=== PATIENT | male | born 1975 | race Caucasian/White ===

== ENCOUNTER 2023-10-06 11:55 | Emergency (ER) | payer SELFPAY ==
[2023-10-06] MEDS ORDERED: Aspirin Chewable 81 MG TAB ONE (12:22)
[2023-10-06 12:59] LABS: #Basophils 0.1 thou/uL (0.0-0.2); #Eosinphils 0.1 thou/uL (0.0-0.7); #Monocytes 0.7 thou/uL (0.11-0.59); #Neutrophils 7.2 thou/uL (1.40-6.50); %Basophils 0.9 % (0.0-1.0); %Eosinophils 1.1 % (0.0-10.0); %Lymphocytes 20.1 % (21.0-51.0); %Monocytes 6.5 % (0.0-10.0); %Neutrophils 71.5 % (42.0-75.0); Hematocrit 48.9 % (42.0-52.0); Hemoglobin 15.9 g/dL (14.0-18.0); Mean Corpuscular HGB CONC 32.5 g/dL (32.0-36.0); Mean Corpuscular Hemoglobin 31.7 pg (27.0-31.0); Mean Corpuscular Volume 97.6 fl (78.0-98.0); Mean Platelet Volume 8.8 fL (7.4-10.4); Platelet Count 184 10x3/uL (130-400); RBC Distribution Width 12.3 % (11.5-14.5); Red Blood Cell (RBC) Count 5.01 mill/uL (4.70-6.10); White Blood Cell (WBC) Count 10.1 10x3/uL (4.8-10.8)
[2023-10-06 13:00] LABS: INR-International Normal Ratio 0.9; Prothrombin Time 12.2 sec (12.0-14.7)
[2023-10-06 13:01] LABS: PTT 27.9 sec (22.9-36.1)
[2023-10-06 13:03] LABS: D-Dimer Test 0.27 *mcg/mL (0.27-0.43)
[2023-10-06 13:14] LABS: Troponin I Less than 0.010 ng/mL (< 0.028)
[2023-10-06 13:15] LABS: Anion Gap 13 mmol/L (10-20); BUN (Urea Nitrogen) 8 mg/dL (8.9-20.6); Calc. Creatinine Clearance 0 mL/min (70-130); Calcium 9.2 mg/dL (7.8-10.44); Carbon Dioxide 23 mmol/L (22-29); Chloride 104 mmol/L (98-107); Estimated GFR 108; Glucose 106 mg/dL (70-105); Lipase 34 U/L (8-78); Potassium 4.2 mmol/L (3.5-5.1); Sodium 136 mmol/L (136-145)
== END 2023-10-06 13:45 | disposition home or self-care (01) ==
LOC: MADERS 11:55
DX: R07.9 Chest pain, unspecified (principal); R00.1 Bradycardia, unspecified; F17.210 Nicotine dependence, cigarettes, uncomplicated
CPT/HCPCS: 71045; 80048; 83690; 84484; 85025; 85379; 85610; 85730; 93005